=== PATIENT | female | born 1990 | race Caucasian/White ===

== ENCOUNTER → 2022-05-06 | Outpatient (CLI) | payer OTHER ==
[~2022-05-06] MED LIST: COLACE100 MG PO; CYCLOBENZAPRINE5 MG PO; FLONASE 0.05% N16 GM; IBU800 MG PO; IBUPROFEN600 MG PO; METFORMIN HCL500 M2 PO; PERCOCET 5-3251 EACH PO; PROAIR HFA8.5 GM INH; PROBIOTIC1 EAC1 PO; XYZAL5 MG PO
[2022-05-06 14:17] LABS: HEMOGLOBIN 14.2 gm/dl (12.3-15.3); RED BLOOD COUNT 4.7 M/UL (4.00-5.10); WHITE BLOOD COUNT 11.9 K/UL (4.5-11.0)
== END ==
LOC: OPSV2 12:30
PROVIDERS: Obstetrics & Gynecology
DX: Z01.812 Encounter for preprocedural laboratory examination (principal); N93.9 Abnormal uterine and vaginal bleeding, unspecified
CPT/HCPCS: 81001; 85025

== ENCOUNTER 2022-05-14 10:17 | Day surgery (SDC) | payer OTHER ==
[~2022-05-14] VITALS: Ht 160 cm; Wt 81.6 kg
[~2022-05-14 10:17] MED LIST changes: -COLACE100 MG PO; -IBUPROFEN600 MG PO; -PERCOCET 5-3251 EACH PO
[2022-05-14] MEDS ORDERED: COLACE100 MG PO (12:06)
[2022-05-14] MEDS ORDERED: IBUPROFEN600 MG PO (12:06)
[2022-05-14] MEDS ORDERED: PERCOCET 5-3251 EACH PO (12:06)
== END 2022-05-14 19:49 | disposition home or self-care (01) ==
LOC: OR 10:17 → M/S 15:10 → OR 19:49
DX: D06.9 Carcinoma in situ of cervix, unspecified (principal); N83.8 Other noninflammatory disorders of ovary, fallopian tube and broad ligament; N83.201 Unspecified ovarian cyst, right side; Z88.2 Allergy status to sulfonamides
CPT/HCPCS: 84703; C1769; J0690; J2001; J2250; J2704; J2795; J3010